=== PATIENT | female | born 2000 | race Hispanic/Latino ===

== ENCOUNTER 2022-09-20 18:15 | Inpatient (IN) | payer OTHER ==
[~2022-09-20] VITALS: Ht 157.5 cm; Wt 88.0 kg
[2022-09-20] MEDS ORDERED: AMPICILLIN 2GM+NS 100ML 100 ML IV SCH (19:00)
[2022-09-20 19:13] LABS: APPEARANCE,URINE CLEAR (CLEAR); BILIRUBIN,URINE NEGATIVE (NEGATIVE); COLOR,URINE LIGHT-YELLOW (YELLOW); GLUCOSE, URINE (UA) NEGATIVE (NEGATIVE); KETONES,URINE 20 mg/dL (NEGATIVE); LEUKOCYTE ESTERASE ,URINE 75 Leu/uL (NEGATIVE); NITRATE,URINE NEGATIVE (NEGATIVE); OCCULT BLOOD,URINE NEGATIVE (NEGATIVE); PH,URINE 6.5 (5.0-8.0); PROTEIN,URINE NEGATIVE (NEGATIVE); UROBILINOGEN,URINE 0.2 mg/dL (0.2-1.0)
[2022-09-20 19:21] LABS: AMPHET/METH SCREEN,URINE NEGATIVE (NEGATIVE); BARBITURATE SCREEN, URINE NEGATIVE (NEGATIVE); BENZODIAZEPINES SCREEN,URINE NEGATIVE (NEGATIVE); CANNABINOID SCREEN,URINE NEGATIVE (NEGATIVE); COCAINE SCREEN,URINE NEGATIVE (NEGATIVE); OPIATE SCREEN,URINE NEGATIVE (NEGATIVE); PHENCYCLIDINE SCREEN,URINE NEGATIVE (NEGATIVE)
[2022-09-20 19:28] LABS: BACTERIA,URINE MANY /HPF (None Seen); SQUAMOUS EPITHELIAL CELL,UR FEW /HPF (0-2)
[2022-09-20 20:13] LABS: HEMATOCRIT 34.6 % (36-48); MEAN CORPUSCULAR HEMOGLOBIN 23.6 pg (27.0-33.0); MEAN CORPUSCULAR HGB CONC 30.9 g/dL (32.0-36.0); MEAN CORPUSCULAR VOLUME 76.2 fL (79-99); PLATELET COUNT (AUTO) 195 K/uL (130-400); RED BLOOD CELL COUNT(AUTO) 4.54 MIL/uL (4.00-5.50); RED CELL DISTRIBUTION WIDTH 16.4 % (11.0-15.5); WHITE BLOOD COUNT (AUTO) 11.8 K/uL (4.8-10.8)
[2022-09-21] MEDS: AMPICILLIN 1GM+NS 50ML 50 ML IV SCH ×6 (00:10→23:00)
[2022-09-21] MEDS: LACTATED RINGERS 1000ML 1,000 ML IV PRN ×3 (01:29→17:54)
[2022-09-21] MEDS: OXYTOCIN-LR 20 UNITS/1000 ML 1,000 ML IV SCH ×2 (08:08→19:56)
[2022-09-21 09:41] LABS: RAPID PLASMA REAGIN NONREACTIVE (NONREACTIVE)
[2022-09-21] MEDS ORDERED: FENTANYL CITRATE PF 50 MCG/1 ML 2ML VIAL ONE (13:31)
[2022-09-21] MEDS ORDERED: EPHEDRINE SULFATE 50 MG/ML AMPULE IVP PRN (14:00)
[2022-09-21] MEDS ORDERED: LACTATED RINGERS 500 ML 500 ML IV PRN (14:00)
[2022-09-21] MEDS ORDERED: ROPIVACAINE 0.2% 100ML VIAL 100 ML EP SCH (14:00)
[2022-09-21] MEDS ORDERED: NALOXONE HCL 0.4 MG/1 ML ML IV PRN (14:00)
[2022-09-21] MEDS ORDERED: CEFAZOLIN SODIUM 1 GM VIAL ONE (18:07)
[2022-09-21] MEDS ORDERED: CEFAZOLIN SODIUM 2 GM VIAL IVPB PRN (18:30)
[2022-09-21] MEDS ORDERED: LIDOCAINE HCL MPF 1% 5ML VIAL ONE (19:03)
[2022-09-21] MEDS ORDERED: CEFAZOLIN SODIUM 2 GM VIAL IVPB ONE (19:05)
[2022-09-21] MEDS ORDERED: MORPHINE PF 100MG/10ML AMP IV ONE (19:08)
[2022-09-21] MEDS ORDERED: MIDAZOLAM HCL 1 MG/ML 2ML VIAL ONE (19:20)
[2022-09-21] MEDS ORDERED: CALDOLOR 800MG+NS 250ML 250 ML IV ONE (19:52)
[2022-09-21] MEDS ORDERED: ONDANSETRON 4MG INJ IVP PRN (20:00)
[2022-09-21] MEDS ORDERED: DEXTROSE 5 %-0.45 % NACL 1,000 ML IV PRN (20:00)
[2022-09-21] MEDS ORDERED: OXYTOCIN-LR 20 UNITS/1000 ML 1,000 ML IV PRN (20:00)
[2022-09-21] MEDS ORDERED: PROMETHAZINE HCL 25 MG/ML 1ML AMPULE IM PRN ×2 (20:00)
[2022-09-21] MEDS ORDERED: MEPERIDINE-PF 75 MG/ML SYG IM PRN (20:00)
[2022-09-21] MEDS ORDERED: CALDOLOR 800MG+NS 250ML 250 ML IV PRN (20:00)
[2022-09-21] MEDS ORDERED: METOCLOPRAMIDE 10 MG/2 ML VIAL IVP PRN (20:00)
[2022-09-21] MEDS ORDERED: 0.9%NACL 10ML VIAL IVP PRN (20:00)
[2022-09-21] MEDS ORDERED: MEPERIDINE-PF 25 MG/ML SYG IV PRN (21:00)
[2022-09-21 23:48] VITALS: BP 119/62
[2022-09-22] MEDS ORDERED: ACETAMINOPHEN 500 MG TABLET PO PRN (00:30)
[2022-09-22] MEDS: AMPICILLIN 1GM+NS 50ML 50 ML IV SCH ×3 (02:48→07:47)
[2022-09-22 03:41] VITALS: BP 118/70
[2022-09-22] MEDS: CALDOLOR 800MG+NS 250ML 250 ML IV SCH ×2 (03:56→11:55)
[2022-09-22] MEDS: ACETAMINOPHEN WITH CODEINE 1 TAB TAB PO PRN (03:57)
[2022-09-22 06:36] LABS: HEMATOCRIT 26.7 % (36-48); MEAN CORPUSCULAR HEMOGLOBIN 23.8 pg (27.0-33.0); MEAN CORPUSCULAR HGB CONC 30.3 g/dL (32.0-36.0); MEAN CORPUSCULAR VOLUME 78.3 fL (79-99); RED BLOOD CELL COUNT(AUTO) 3.41 MIL/uL (4.00-5.50); RED CELL DISTRIBUTION WIDTH 16.3 % (11.0-15.5); WHITE BLOOD COUNT (AUTO) 13.9 K/uL (4.8-10.8)
[2022-09-22 08:00] VITALS: BP 122/70
[2022-09-22] MEDS ORDERED: DIPHENHYDRAMINE HCL 25 MG CAPSULE PO PRN (08:00)
[2022-09-22] MEDS ORDERED: BISACODYL 10 MG SUPP.RECT RC PRN (08:00)
[2022-09-22] MEDS ORDERED: HYDROCODONE/ACETAMINOPHEN 5/325 MG TAB PO PRN (08:00)
[2022-09-22] MEDS ORDERED: LANOLIN 30GM OINTMENT TP PRN (08:00)
[2022-09-22] MEDS: SIMETHICONE 80 MG TAB.CHEW PO PRN ×3 (08:19→18:18)
[2022-09-22] MEDS: DOCUSATE SODIUM 100 MG CAP PO SCH ×2 (08:20→20:41)
[2022-09-22 12:00] VITALS: BP 131/79
[2022-09-22 16:00] VITALS: BP 124/76
[2022-09-22] MEDS: IBUPROFEN 600 MG TABLET PO PRN (18:19)
[2022-09-22 20:00] VITALS: BP 127/84
[2022-09-23] VITALS: BP 117/67
[2022-09-23] MEDS: ACETAMINOPHEN WITH CODEINE 1 TAB TAB PO PRN ×2 (00:18→06:17)
[2022-09-23 03:34] VITALS: BP 105/62
[2022-09-23 07:36] VITALS: BP 120/73
[2022-09-23] MEDS: DOCUSATE SODIUM 100 MG CAP PO SCH (09:05)
[2022-09-23] MEDS: SIMETHICONE 80 MG TAB.CHEW PO PRN (09:05)
[2022-09-23] MEDS: IBUPROFEN 600 MG TABLET PO PRN (09:08)
[2022-09-23 11:32] VITALS: BP 113/68
== END 2022-09-23 13:50 | disposition home or self-care (01) | DRG 788 ==
LOC: LDH 18:15 → WSH 09-21 22:40
PROVIDERS: ADMIT Obstetrics & Gynecology; ATTEND Obstetrics & Gynecology
PROC: 10D00Z1 Extraction of Products of Conception, Low, Open Approach (ICD-10-PCS; principal; 2022-09-21 18:55)
DX: O61.8 Other failed induction of labor (principal); O41.00X0 Oligohydramnios, unspecified trimester, not applicable or unspecified; O62.1 Secondary uterine inertia; Z37.0 Single live birth; Z3A.39 39 weeks gestation of pregnancy
CPT/HCPCS: 36415; 59510; 80305; 81001; 85027; 86592; 86701; 86850; 86900; 86901; 87077; 87088; 87186; 87340; 87390; A4314; A4344; G0378; J0290; J0690; J1741; J2175; J2250; J2274; J2550; J2590; J3010; J3490; J7120